=== PATIENT | female | born 1950 | race American Indian/Alaskan Native ===

== ENCOUNTER 2016-07-06 13:06 | Outpatient (CLI) | payer MEDICARE ==
--- NOTE | 2016-07-06 13:52 | XRay Report ---
CHEST TWO VIEWS: 07/06/16 13:06:00 CLINICAL: Chest pain. COMPARISON: None FINDINGS: The heart is borderline large with a left ventricular contour. Mild aortic tortuosity. Normal pulmonary vessels. The lungs are normally expanded and clear.Spondylosis of the thoracic spine. IMPRESSION: Borderline cardiomegaly and hypertensive changes in the heart and aorta.No acute cardiopulmonary process.
== END 2016-07-06 13:07 | disposition home or self-care (01) ==
LOC: SPVIMAG 13:06
PROVIDERS: ATTEND Internal Medicine
DX: M47.894 Other spondylosis, thoracic region (principal); Q25.46 Tortuous aortic arch
CPT/HCPCS: 71020

== ENCOUNTER 2016-09-12 23:24 | Emergency (ER) | payer MEDICARE ==
[2016-09-13] MEDS ORDERED: TYLENOL ONE (01:58)
[2016-09-13] MEDS ORDERED: TYLENOL PO ONE (03:36)
[2016-09-13 03:52] VITALS: BP 160/101
== END 2016-09-13 05:55 | disposition left against medical advice (07) ==
LOC: ED 23:24
DX: I10 Essential (primary) hypertension (principal); M19.90 Unspecified osteoarthritis, unspecified site; K21.9 Gastro-esophageal reflux disease without esophagitis; Z91.040 Latex allergy status; Z53.21 Procedure and treatment not carried out due to patient leaving prior to being seen by health care provider